=== PATIENT | male | born 2005 | race Caucasian/White ===

== ENCOUNTER 2024-11-02 13:56 | Outpatient (CLI) | payer OTHER ==
[~2024-11-02] VITALS: Ht 165.1 cm; Wt 74.0 kg
[2024-11-02] MEDS ORDERED: NS (Normal Saline) 0.9% 1,000 ML IV SCH (14:00)
[2024-11-02 14:10] VITALS: BP 136/72; O2SAT 100
[2024-11-02] MEDS: NS IV ONE (14:45)
[2024-11-02] MEDS: INFLIXIMAB ABDA IV ONE (14:45)
[2024-11-02 15:30] VITALS: BP 141/74; O2SAT 99
[2024-11-02 16:03] VITALS: BP 130/75; O2SAT 99
[2024-11-02 16:34] VITALS: BP 131/74; O2SAT 100
[2024-11-02 17:00] VITALS: BP 120/74; TEMP 37.4; O2SAT 100
== END 2024-11-02 17:00 | disposition home or self-care (01) ==
LOC: M INFU 13:56
PROVIDERS: ATTEND Family Medicine
DX: K50.90 Crohn's disease, unspecified, without complications (principal); Z88.8 Allergy status to other drugs, medicaments and biological substances
CPT/HCPCS: 96413; 96415; Q5104

== ENCOUNTER 2025-04-11 08:50 | Outpatient (RCR) | payer OTHER | END 2025-04-18 | LOC: M ST 08:50 | PROVIDERS: ATTEND Family Medicine | DX: S06.9X0D Unspecified intracranial injury without loss of consciousness, subsequent encounter (principal) ==

== ENCOUNTER → 2025-04-11 | Outpatient (CLI) | payer OTHER | LOC: M RAD 14:31 | PROVIDERS: ATTEND Family Medicine | DX: G96.89 Other specified disorders of central nervous system (principal); S06.9X0A Unspecified intracranial injury without loss of consciousness, initial encounter; W18.30XA Fall on same level, unspecified, initial encounter; Y92.009 Unspecified place in unspecified non-institutional (private) residence as the place of occurrence of the external cause ==

== ENCOUNTER 2025-04-17 08:16 | Outpatient (CLI) | payer OTHER ==
[~2025-04-17] VITALS: Ht 165.1 cm; Wt 79.5 kg
[~2025-04-17 08:16] MED LIST: ACETAMINOPHEN 650MG PO PRIOR TO INFUSION PO ONE; NS (Normal Saline) 0.9% 1,000 ML IV SCH
[2025-04-17 08:42] VITALS: BP 137/79; O2SAT 99
[2025-04-17] MEDS: inFLIXimab INJECTION 400 MG in NS 210 ML IV ONE (09:33)
[2025-04-17 11:40] VITALS: BP 122/83; O2SAT 100
== END 2025-04-17 11:45 | disposition home or self-care (01) ==
LOC: M INFU 08:16
PROVIDERS: ATTEND Internal Medicine Gastroenterology
DX: K50.111 Crohn's disease of large intestine with rectal bleeding (principal); Z88.1 Allergy status to other antibiotic agents; Z88.8 Allergy status to other drugs, medicaments and biological substances
CPT/HCPCS: 96413; 96415; 99195; J1745

== ENCOUNTER 2025-04-17 23:13 | Emergency (ER) | payer OTHER ==
[~2025-04-17] VITALS: Ht 165.1 cm; Wt 79.5 kg
[2025-04-17 23:15] VITALS: BP 124/84; TEMP 97.9; O2SAT 98
[2025-04-18 00:11] LABS: PLATELET COUNT, AUTOMATED 395 10^3/uL (150-450)
[2025-04-18 00:37] LABS: ALT/SGPT 43 U/L (7.0-40); AST/SGOT 20 U/L (<34); CALCIUM LEVEL 9.3 MG/DL (8.5-10.1); CARBON DIOXIDE LEVEL 26 MMOL/L (20-31); CHLORIDE LEVEL 106 MMOL/L (98-107); CREATININE FOR GFR 1.00 MG/DL (0.70-1.30); GLOMERULAR FILTRATION RATE > 90.0 (>60); POTASSIUM SERUM 4.1 MMOL/L (3.5-5.1); SODIUM LEVEL 144 MMOL/L (136-145)
[2025-04-18 00:46] LABS: ATYPICAL LYMPH 1 % (0-5); BASOPHILS 5 % (0-1); EOSINOPHILS 1 % (0-3); LYMPHOCYTES 35 % (16-44); MONOCYTES 11 % (0-5); NEUTROPHILS 47 % (28-66); PLATELET ESTIMATE NORMAL (NORMAL)
== END 2025-04-18 01:31 | disposition left against medical advice (07) ==
LOC: M ED 23:13
DX: Z53.21 Procedure and treatment not carried out due to patient leaving prior to being seen by health care provider (principal)

== ENCOUNTER 2025-04-21 10:39 | Outpatient (RCR) | payer OTHER | END 2025-05-19 | LOC: M ST 10:39 | PROVIDERS: ATTEND Family Medicine | DX: S06.9X0A Unspecified intracranial injury without loss of consciousness, initial encounter (principal) ==

== ENCOUNTER 2025-06-12 08:03 | Outpatient (CLI) | payer OTHER ==
[~2025-06-12] VITALS: Ht 165.1 cm; Wt 81.8 kg
[2025-06-12] MEDS ORDERED: ACETAMINOPHEN 650MG PO PRIOR TO INFUSION PO ONE (08:30)
[2025-06-12] MEDS ORDERED: NS (Normal Saline) 0.9% 1,000 ML IV SCH (08:30)
[2025-06-12] MEDS: inFLIXimab INJECTION 400 MG in NS 210 ML IV ONE (09:41)
[2025-06-12 09:45] VITALS: BP 129/73; O2SAT 99
[2025-06-12 09:55] VITALS: BP 122/70; O2SAT 97
[2025-06-12 10:40] VITALS: BP 126/81; O2SAT 99
== END 2025-06-12 10:40 | disposition home or self-care (01) ==
LOC: M INFU 08:03
PROVIDERS: ATTEND Internal Medicine Gastroenterology
DX: K50.111 Crohn's disease of large intestine with rectal bleeding (principal); Z88.1 Allergy status to other antibiotic agents; Z88.8 Allergy status to other drugs, medicaments and biological substances
CPT/HCPCS: 96413; J1745